=== PATIENT | male | born 1955 | race Caucasian/White ===

== ENCOUNTER 2023-08-21 08:07 | Outpatient (CLI) | payer MEDICARE | END 2023-08-21 08:08 | disposition home or self-care (01) | LOC: CSHMRI 08:07 | PROVIDERS: ATTEND Urology | DX: R97.20 Elevated prostate specific antigen [PSA] (principal) | CPT/HCPCS: 72197 ==

== ENCOUNTER 2025-02-16 12:16 | Outpatient (CLI) | payer MEDICARE ==
[~2025-02-16 12:16] MED LIST: Iopamidol 370 76% 100 ML VIAL ONE
[2025-02-16 13:18] LABS: Estimated GFR - POC 96.0
== END 2025-02-16 12:17 | disposition home or self-care (01) ==
LOC: CSHCT 12:16
PROVIDERS: ATTEND Urology
DX: R31.29 Other microscopic hematuria (principal); N28.89 Other specified disorders of kidney and ureter; N28.1 Cyst of kidney, acquired; N20.0 Calculus of kidney; K76.0 Fatty (change of) liver, not elsewhere classified; N40.0 Benign prostatic hyperplasia without lower urinary tract symptoms
CPT/HCPCS: 74178; 82565; Q9967